=== PATIENT | male | born 1985 | race Caucasian/White ===

== ENCOUNTER 2019-10-15 11:06 | Emergency (ER) | payer BC, OTHER ==
[2019-10-15 11:20] VITALS: TEMP 97.9
[2019-10-15] MEDS ORDERED: hydrALAZINE HCL 20 MG/ML 1 ML VIAL IM STA (11:30)
[2019-10-15] MEDS ORDERED: OXYMETAZOLINE 0.05% NASL SPRAY 1 SPRAY BOTTLE NASAL STA (11:31)
[2019-10-15] MEDS ORDERED: amLODIPine 5 MG TAB PO STA (12:53)
--- NOTE | 2019-10-15 12:55 | ED ---
ENT HPI - General Chief complaint: ENT Stated complaint: nosebleed Time Seen by Provider: 10/15/19 11:27 Source: patient Mode of arrival: ambulatory Limitations: no limitations - History of Present Illness Initial comments: 34yo male presenting to the ER today for cc of nose bleed, patient has had a total of 3 nosebleeds within the last 2 days, today being the third. Others lasting <20 minutes, left nare. Patient states that today the bleeding lasted l onger and was going down the back of throat at time so he presented to the ER for evaluation. Patient has history of hypertension and denies compliance with his medications. Patient denies headache, dizziness, lightheadedness, anticoagulation use, bleeding disorders, chest pain, shortness of breath, cold intolerance or palpations. Remaining ROS (-). Upon arrival patient BP elevated. - Related Data Previous Rx's Medication Instructions Recorded amLODIPine [Norvasc] 5 mg PO DAILY #7 tab 08/10/17 Lisinopril [Zestril] 10 mg PO DAILY 14 Days #14 tab 10/15/19 Amoxicillin 875 mg PO Q12HR #14 tablet 10/16/19 Allergies Allergy/AdvReac Type Severity Reaction Status Date / Time No Known Allergies Allergy Verified 10/16/19 05:51 Review of Systems ROS Statement: Those systems with pertinent positive or pertinent negative responses have been documented in the HPI. ROS Other: All systems not noted in ROS Statement are negative. Past Medical History Past Medical History: Hypertension History of Any Multi-Drug Resistant Organisms: None Reported Past Surgical History: No Surgical Hx Reported Past Psychological History: No Psychological Hx Reported Smoking Status: Current every day smoker Past Alcohol Use History: Occasional Past Drug Use History: None Reported General Exam - General Exam Comments Initial Comments: General: The patient is awake and alert, in no distress, and does not appear acutely ill. Eye: Pupils are equal, round and reactive to light, extra-ocular movements are intact. No nystagmus. There is normal conjunctiva bilaterally. No signs of icterus. Ears, nose, mouth and throat: There are moist mucous membranes and no oral lesions. Blood coming from the left nares. No stream of blood in the posterior oropharynx. Neck: The neck is supple, there is no tenderness or JVD. Cardiovascular: There is a regular rate and rhythm. No murmur, rub or gallop is appreciated. Respiratory: Lungs are clear to auscultation, respirations are non-labored, breath sounds are equal. No wheezes, stridor, rales, or rhonchi. Musculoskeletal: Normal ROM, no tenderness. Strength 5/5. Sensation intact. Pulses equal bilaterally 2+. Neurological: A&O x 3. CN II-XII intact grossly, There are no obvious motor or sensory deficits. Coordination appears grossly intact. Speech is normal. Skin: Skin is warm and dry and no rashes or lesions are noted. Psychiatric: Cooperative, appropriate mood & affect, normal judgment. Limitations: no limitations Course Vital Signs 10/15/19 10/15/19 10/15/19 11:16 11:41 12:00 Temperature 97.9 F Pulse Rate 91 90 83 Respiratory 18 20 16 Rate Blood Pressure 209/113 195/115 179/118 O2 Sat by Pulse 96 99 Oximetry 10/15/19 10/15/19 10/15/19 12:15 12:46 13:08 Temperature Pulse Rate 86 90 82 Respiratory 16 16 18 Rate Blood Pressure 166/118 183/105 188/108 O2 Sat by Pulse 99 98 99 Oximetry 10/15/19 10/15/19 10/15/19 13:22 14:00 15:00 Temperature Pulse Rate Respiratory Rate Blood Pressure 171/103 188/101 179/100 O2 Sat by Pulse Oximetry 10/15/19 10/15/19 10/15/19 16:00 17:00 17:24 Temperature Pulse Rate 80 82 Respiratory 20 20 20 Rate Blood Pressure 165/112 166/98 O2 Sat by Pulse 99 99 Oximetry - Reevaluation(s) Reevaluation #1: Attempted Afrin and pressure--- worked for 20 minutes, the bled out of left nare again Reevaluation #2: Could not localize the bleed for cauterization, used anterior packing (nasal tampon) Reevaluation #3: Nasal tampon fell out... replaced 10cm with 8cm. Reevaluation #4: Continues to bleed, removed tampon, blew clots, used afrin and pressure for 15 minutes (if failed was going to use rhino rocket). This was successful patient in ER for over 2 hours in attempt to control BP prior to discharge. Patient denies any current complaints. Medical Decision Making - Medical Decision Making 34-year-old male presenting for nosebleed. After multiple attempts including pressure nasal tampon were finally able to stop bleeding. Patient was monitored in the ER for blood pressure management. Patient denied chest pain shortness of breath and leg swelling headache dizziness nausea vomiting. Patient appeared well, patient appears anxious in the ER once diastolic less than 100 with acceptable systolic blood pressure we discharge patient with oral antihypertensive and recommend patient keep a blood pressure diary home and take medications of blood pressure is elevated patient was agreeable to this care plan recommend follow-up within 2 days with primary care provider for proper blood pressure management return for epistaxis. Patient discharged appearing well after discussing case with Dr. Dallas. - Lab Data Result diagrams: 10/15/19 13:20 10/15/19 13:20 Lab Results 10/15/19 10/15/19 Range/Units 13:20 13:20 WBC 10.8 H (3.8-10.6) k/uL RBC 4.77 (4.30-5.90) m/uL Hgb 15.9 (13.0-17.5) gm/dL Hct 44.7 (39.0-53.0) % MCV 93.7 (80.0-100.0) fL MCH 33.3 (25.0-35.0) pg MCHC 35.6 (31.0-37.0) g/dL RDW 12.3 (11.5-15.5) % Plt Count 236 (150-450) k/uL Neutrophils % 70 % Lymphocytes % 17 % Monocytes % 8 % Eosinophils % 1 % Basophils % 1 % Neutrophils # 7.6 (1.3-7.7) k/uL Lymphocytes # 1.9 (1.0-4.8) k/uL Monocytes # 0.8 (0-1.0) k/uL Eosinophils # 0.1 (0-0.7) k/uL Basophils # 0.1 (0-0.2) k/uL Sodium 136 L (137-145) mmol/L Potassium 4.3 (3.5-5.1) mmol/L Chloride 104 (98-107) mmol/L Carbon Dioxide 22 (22-30) mmol/L Anion Gap 10 mmol/L BUN 10 (9-20) mg/dL Creatinine 0.74 (0.66-1.25) mg/dL Est GFR (CKD-EPI)AfAm >90 (>60 ml/min/1.73 sqM) Est GFR (CKD-EPI)NonAf >90 (>60 ml/min/1.73 sqM) Glucose 137 H (74-99) mg/dL Calcium 9.8 (8.4-10.2) mg/dL Total Bilirubin 1.0 (0.2-1.3) mg/dL AST 61 H (17-59) U/L ALT 73 H (4-49) U/L Alkaline Phosphatase 69 (38-126) U/L Total Protein 7.8 (6.3-8.2) g/dL Albumin 4.7 (3.5-5.0) g/dL Disposition Clinical Impression: Epistaxis, Elevated blood lead level Disposition: HOME SELF-CARE Condition: Good Instructions (If sedation given, give patient instructions): Nosebleed (ED), Hypertension (ED) Additional Instructions: Please use medication as discussed. Please follow-up with family doctor in the next 2 days, recommend keeping blood pressure journal-if BP continues to be elevated after a 3 hours of taking 10mg lisinopril take addition 10mg as discussed. If BP is WNL please hold medication, take BP prior to taking the lisinopril. please avoid hot or spicy foods, use humidifier as discussed .Please return to emergency room if the symptoms increase or worsen or for any other concerns. Prescriptions: Lisinopril [Zestril] 10 mg PO DAILY 14 Days #14 tab Is patient prescribed a controlled substance at d/c from ED?: No Referrals: Iker Rosales MD [Primary Care Provider] - 1-2 days Time of Disposition: 17:07
[2019-10-15 13:39] LABS: ALT 73 U/L (4-49); AST 61 U/L (17-59); African American GFR (CKD) >90 (>60 ml/min/1.73 sqM); Albumin 4.7 g/dL (3.5-5.0); Alkaline Phosphatase 69 U/L (38-126); Anion Gap 10 mmol/L; Blood Urea Nitrogen 10 mg/dL (9-20); Calcium 9.8 mg/dL (8.4-10.2); Carbon Dioxide 22 mmol/L (22-30); Chloride 104 mmol/L (98-107); Glucose 137 mg/dL (74-99); Non-African American GFR(CKD) >90 (>60 ml/min/1.73 sqM); Potassium 4.3 mmol/L (3.5-5.1); Sodium 136 mmol/L (137-145); Total Protein 7.8 g/dL (6.3-8.2)
[2019-10-15] MEDS ORDERED: hydrALAZINE HCL 20 MG/ML 1 ML VIAL IVP STA (13:39)
[2019-10-15 13:41] LABS: Basophils # (A) 0.1 k/uL (0-0.2); Basophils % (A) 1 %; Eosinophils # (A) 0.1 k/uL (0-0.7); Eosinophils % (A) 1 %; HCT 44.7 % (39.0-53.0); HGB 15.9 gm/dL (13.0-17.5); Lymphocytes # (A) 1.9 k/uL (1.0-4.8); Lymphocytes % (A) 17 %; MCH 33.3 pg (25.0-35.0); MCHC 35.6 g/dL (31.0-37.0); MCV 93.7 fL (80.0-100.0); Mean Platelet Volume 7.3; Monocytes # (A) 0.8 k/uL (0-1.0); Monocytes % (A) 8 %; Neutrophils # (A) 7.6 k/uL (1.3-7.7); Neutrophils % (A) 70 %; Platelet Count 236 k/uL (150-450); RBC 4.77 m/uL (4.30-5.90); RDW 12.3 % (11.5-15.5); WBC 10.8 k/uL (3.8-10.6)
[2019-10-15] MEDS ORDERED: LORazepam 2 MG/ML INJ IV STA (14:02)
[2019-10-15] MEDS ORDERED: LABETALOL 5 MG/ML VIAL MDV IVP STA ×2 (14:40→16:20)
[2019-10-15] MEDS ORDERED: SODIUM CHLORIDE 0.9% 1,000 ML IV SCH (14:45)
[2019-10-15 16:25] VITALS: RESP 20
[2019-10-15 17:12] VITALS: BP 166/98; PULSE 82
== END 2019-10-15 18:35 | disposition home or self-care (01) ==
LOC: EC 11:06
DX: R04.0 Epistaxis (principal); I10 Essential (primary) hypertension; F17.200 Nicotine dependence, unspecified, uncomplicated
CPT/HCPCS: 36415; 80053; 85025; 99283; 96372; 96374; 96375 ×2; 96376; 96361 ×2; 30901; J2060; J0360

== ENCOUNTER 2019-10-16 05:43 | Emergency (ER) | payer BC ==
[2019-10-16 05:51] VITALS: TEMP 98.3
[2019-10-16] MEDS ORDERED: LABETALOL 5 MG/ML VIAL MDV IVP STA ×2 (05:55→06:31)
[2019-10-16] MEDS ORDERED: LORazepam 2 MG/ML INJ IV STA (05:57)
[2019-10-16 06:07] LABS: Basophils # (A) 0.1 k/uL (0-0.2); Basophils % (A) 0 %; Eosinophils # (A) 0.1 k/uL (0-0.7); Eosinophils % (A) 1 %; HCT 42.4 % (39.0-53.0); Lymphocytes # (A) 2.3 k/uL (1.0-4.8); Lymphocytes % (A) 15 %; MCH 33.2 pg (25.0-35.0); MCHC 35.3 g/dL (31.0-37.0); MCV 94.1 fL (80.0-100.0); Mean Platelet Volume 7.6; Monocytes # (A) 0.9 k/uL (0-1.0); Monocytes % (A) 6 %; Neutrophils % (A) 73 %; Platelet Count 271 k/uL (150-450); RBC 4.51 m/uL (4.30-5.90); RDW 12.2 % (11.5-15.5)
--- NOTE | 2019-10-16 06:10 | ED ---
ENT HPI - General Chief complaint: ENT Stated complaint: Bloody Nose Time Seen by Provider: 10/16/19 05:52 Source: patient, family, RN notes reviewed Mode of arrival: ambulatory Limitations: no limitations - History of Present Illness Initial comments: 34-year-old male presents emergency Department with chief complaint of nosebleed. Patient states he was seen here yesterday and was diagnosed hypertension and states the bleeding had stopped. Patient states he used to be on Norvasc was discharged with lisinopril. He has not taken his morning dose. Patient states the bleeding started again around 10 or 11:00 last night has been persistent. Patient denies any current headache denies any chest pain, shortness of breath. Patient states he's never had a nosebleed prior to this in his life. - Related Data Previous Rx's Medication Instructions Recorded amLODIPine [Norvasc] 5 mg PO DAILY #7 tab 08/10/17 Lisinopril [Zestril] 10 mg PO DAILY 14 Days #14 tab 10/15/19 Amoxicillin 875 mg PO Q12HR #14 tablet 10/16/19 Allergies Allergy/AdvReac Type Severity Reaction Status Date / Time No Known Allergies Allergy Verified 10/16/19 05:51 Review of Systems ROS Statement: Those systems with pertinent positive or pertinent negative responses have been documented in the HPI. ROS Other: All systems not noted in ROS Statement are negative. Past Medical History Past Medical History: Hypertension History of Any Multi-Drug Resistant Organisms: None Reported Past Surgical History: No Surgical Hx Reported Past Psychological History: No Psychological Hx Reported Smoking Status: Current every day smoker Past Alcohol Use History: Occasional Past Drug Use History: None Reported General Exam Limitations: no limitations General appearance: alert, in no apparent distress Head exam: Present: atraumatic, normocephalic, normal inspection Eye exam: Present: normal appearance, PERRL, EOMI. Absent: scleral icterus, conjunctival injection, periorbital swelling ENT exam: Present: mucous membranes moist, TM's normal bilaterally, normal external ear exam. Absent: normal exam, normal oropharynx (Blood noted in the posterior pharynx), other (Persistent bleeding on the left nare) Neck exam: Present: normal inspection, full ROM. Absent: tenderness, meningismus, lymphadenopathy Respiratory exam: Present: normal lung sounds bilaterally. Absent: respiratory distress, wheezes, rales, rhonchi, stridor Cardiovascular Exam: Present: regular rate, normal rhythm, normal heart sounds. Absent: systolic murmur, diastolic murmur, rubs, gallop, clicks Neurological exam: Present: alert, oriented X3, CN II-XII intact Skin exam: Present: warm, dry, intact, normal color. Absent: rash Course Vital Signs 10/16/19 10/16/19 10/16/19 05:48 06:15 06:30 Temperature 98.3 F Pulse Rate 95 89 83 Respiratory 20 18 18 Rate Blood Pressure 189/127 166/144 163/112 O2 Sat by Pulse 98 Oximetry 10/16/19 10/16/19 10/16/19 06:45 06:58 07:14 Temperature Pulse Rate 84 83 83 Respiratory 18 18 18 Rate Blood Pressure 144/105 149/96 146/97 O2 Sat by Pulse 98 98 96 Oximetry Procedures - Procedures Initial comment: Left nostril epistaxis: Clots were cleared from left nostril, Rhino Rocket was placed with no complications balloons were inflated, bleeding subsided. Medical Decision Making - Medical Decision Making 34-year-old male presented for epistaxis, hypertension. Patient's blood pressure is improved. Patient nose was packed with a Rhino Rocket with no comp medications. Patient case discussed with his PCP will follow-up with him in the next 1-2 days. Patient will continue his lisinopril and is advised to monitor his blood pressure at home. Return parameters were discussed. - Lab Data Result diagrams: 10/16/19 06:02 10/16/19 06:02 Lab Results 10/16/19 10/16/19 Range/Units 06:02 06:02 WBC 15.0 H (3.8-10.6) k/uL RBC 4.51 (4.30-5.90) m/uL Hgb 15.0 (13.0-17.5) gm/dL Hct 42.4 (39.0-53.0) % MCV 94.1 (80.0-100.0) fL MCH 33.2 (25.0-35.0) pg MCHC 35.3 (31.0-37.0) g/dL RDW 12.2 (11.5-15.5) % Plt Count 271 (150-450) k/uL Neutrophils % 73 % Lymphocytes % 15 % Monocytes % 6 % Eosinophils % 1 % Basophils % 0 % Neutrophils # 11.0 H (1.3-7.7) k/uL Lymphocytes # 2.3 (1.0-4.8) k/uL Monocytes # 0.9 (0-1.0) k/uL Eosinophils # 0.1 (0-0.7) k/uL Basophils # 0.1 (0-0.2) k/uL Sodium 134 L (137-145) mmol/L Potassium 4.4 (3.5-5.1) mmol/L Chloride 99 (98-107) mmol/L Carbon Dioxide 25 (22-30) mmol/L Anion Gap 10 mmol/L BUN 16 (9-20) mg/dL Creatinine 0.71 (0.66-1.25) mg/dL Est GFR (CKD-EPI)AfAm >90 (>60 ml/min/1.73 sqM) Est GFR (CKD-EPI)NonAf >90 (>60 ml/min/1.73 sqM) Glucose 173 H (74-99) mg/dL Calcium 9.8 (8.4-10.2) mg/dL Total Bilirubin 2.1 H (0.2-1.3) mg/dL AST 40 (17-59) U/L ALT 61 H (4-49) U/L Alkaline Phosphatase 54 (38-126) U/L Total Protein 7.6 (6.3-8.2) g/dL Albumin 4.8 (3.5-5.0) g/dL Disposition Clinical Impression: Epistaxis, Hypertension Disposition: HOME SELF-CARE Condition: Stable Instructions (If sedation given, give patient instructions): Nosebleed (ED), Hypertension (ED) Additional Instructions: Please return to the Emergency Department if symptoms worsen or any other concer ns. Prescriptions: Amoxicillin 875 mg PO Q12HR #14 tablet Is patient prescribed a controlled substance at d/c from ED?: No Referrals: Iker Rosales MD [Primary Care Provider] - 1-2 days Didier Hughes MD [STAFF PHYSICIAN] - 1-2 days Time of Disposition: 07:43
[2019-10-16 06:25] LABS: ALT 61 U/L (4-49); AST 40 U/L (17-59); African American GFR (CKD) >90 (>60 ml/min/1.73 sqM); Albumin 4.8 g/dL (3.5-5.0); Alkaline Phosphatase 54 U/L (38-126); Anion Gap 10 mmol/L; Blood Urea Nitrogen 16 mg/dL (9-20); Calcium 9.8 mg/dL (8.4-10.2); Carbon Dioxide 25 mmol/L (22-30); Chloride 99 mmol/L (98-107); Glucose 173 mg/dL (74-99); Non-African American GFR(CKD) >90 (>60 ml/min/1.73 sqM); Potassium 4.4 mmol/L (3.5-5.1); Sodium 134 mmol/L (137-145); Total Bilirubin 2.1 mg/dL (0.2-1.3); Total Protein 7.6 g/dL (6.3-8.2)
[2019-10-16] MEDS ORDERED: MORPHINE SULFATE 4 MG/ML SYRINGE IVP STA (06:31)
[2019-10-16] MEDS ORDERED: ONDANSETRON 4 MG/2 ML VIAL IVP STA (06:31)
[2019-10-16 06:43] VITALS: RESP 18
[2019-10-16 06:58] VITALS: PULSE 83
[2019-10-16 07:14] VITALS: BP 146/97
[2019-10-16] MEDS ORDERED: LISINOPRIL 10 MG TAB PO STA (07:23)
[2019-10-16] MEDS ORDERED: ACET/COD 300 MG/30 MG STARTER PACK 6 TAB BTL PO STA (07:39)
== END 2019-10-16 07:51 | disposition home or self-care (01) ==
LOC: EC 05:43
DX: R04.0 Epistaxis (principal); I10 Essential (primary) hypertension; F17.200 Nicotine dependence, unspecified, uncomplicated
CPT/HCPCS: 36415; 80053; 85025; 99283; 30901; 96374; 96375 ×3; 96376; J2060; J2270; J2405